=== PATIENT | female | born 1965 | race American Indian/Alaskan Native ===

== ENCOUNTER 2020-11-23 16:38 | Observation (INO) | payer OTHER ==
[2020-11-23 15:12] LABS: Hematocrit 42.6 % (30.3-42.9); Hemoglobin 13.5 gm/dl (10.1-14.3); Mean Corpuscular HGB Conc 32 % (30-34); Mean Corpuscular Volume 83 fl (79-97); Platelet Count 366 K/mm3 (140-440); Red Cell Distribution Width 16.2 % (13.2-15.2)
--- NOTE | 2020-11-23 15:20 | Cat Scan Report ---
CT head/brain wo con INDICATION / CLINICAL INFORMATION: 55 years Female; code stroke. TECHNIQUE: Routine CT head without contrast. All CT scans at this location are performed using CT dos e reduction for ALARA by means of automated exposure control. COMPARISON: None. FINDINGS: BRAIN / INTRACRANIAL CONTENTS: The motion significantly degrades the image quality. However, there is a right frontal and left frontotemporal craniotomy defects with underlying encephalomalacia. There i s also extensive cerebral white matter disease most consistent with microvascular angiopathy. The inf arct along the anterior left thalamus appears chronic. However, correlation would be needed regarding underlying acute ischemia given the extent of findings and patient's history of unspecified "code st roke". There is notable soft tissue attenuation projected along the sellar and suprasellar region as well as the medial left temporal lobe with effacement of the adjacent sulci. This finding would appear to re flect residual tumor given the postsurgical changes and correlation would be needed, particularly reg arding any previous outside exams. Is mild cerebral atrophy with prominence of the ventricular system . The motion and beam hardening degrade the image quality with streak artifact along the cerebral conve xities. However, there is otherwise no gross CT evidence of acute intracranial hemorrhage. ORBITS: No significant abnormality of visualized orbits. SINUSES / MASTOIDS: There are postsurgical changes compatible with transsphenoidal approach for pitui tary lesion. Otherwise, the paranasal sinuses are pneumatized. CRANIOCERVICAL JUNCTION: No significant abnormality. ADDITIONAL FINDINGS: None. IMPRESSION: 1. The study is limited by motion. However, there are extensive postsurgical changes with apparent re sidual lesion along the suprasellar and left cavernous sinus region as detailed above. 2. There is also extensive microvascular angiopathy as described without gross CT evidence of acute i ntracranial hemorrhage. The study was specified as code stroke and called to Dr. Heath in the ER at 2:12 PM Central standar d time. Signer Name: Omar Underwood MD Signed: 11/23/2020 3:16 PM Workstation Name: [id number]
[2020-11-23 15:25] LABS: INR 1.15 (0.87-1.13)
[2020-11-23 15:26] LABS: Thrombin Time 17.6 Sec. (15.1-19.6)
[2020-11-23 15:31] LABS: Albumin 4.1 g/dL (3.9-5); Bilirubin,Direct 0.3 mg/dL (0-0.2); Calcium 9.2 mg/dL (8.4-10.2)
--- NOTE | 2020-11-23 15:42 | Consultation ---
History of Present Illness - Reason for Consult Consult date: 11/23/20 - History of Present Illness [facility] Consult Note # Demographics Consult Type: Acute Stroke Level 1 (0-4.5 hrs) Patient Location: Emergency Room First Name: Nicholas Last Name: Amrik Date of : 1965 Age: 55 Gender: Female Time of Initial Page ( Time): 11/23/2020, 14:45 Time of Return Call ( Time): 11/23/2020, 14:46 # HPI History: 55yo woman who fell in the bathroom, and was not able to use her right arm (was not able to hold a water bottle). She also had right facial drooping. En route, EMS stated she has had resolution of symptoms. She still has mild right facial. # Scores Time of exam and NIHSS ( Time): 11/23/2020, 14:52 Level of Consciousness 1a: [0] = Alert; keenly responsive LOC Questions 1b: [0] = Answers both questions correctly LOC Commands 1c: [0] = Performs both tasks correctly Best Gaze 2: [0] = Normal Visual 3: [0] = No visual loss Facial Palsy 4: [1] = Minor paralysis Motor Arm Left 5a: [0] = No drift Motor Arm Right 5b: [0] = No drift Motor Leg Left 6a: [0] = No drift Motor Leg Right 6b: [0] = No drift Limb Ataxia 7: [0] = Absent Sensory 8: [0] = Normal Best Language 9: [0] = No aphasia Dysarthria 10: [0] = Normal Extinction and Inattention 11: [0] = No abnormality NIHSS Total: 1 # Exam SBP: 120 DBP: 76 # PMH-FH-SH Past Medical History: Diabetes, hypertension, brain surgery for brain tumor # Data Glucose: [address]: no bleed, old left encephalomalacia and left craniotomy # Assessment Impression: Altered Mental Status, Weakness, possible seizure vs stroke with improving symptoms. # Plan Thrombolytic/Intervention: NOT IV Thrombolytic or IA Intervention Thrombolytic Exclusion (< 3 hour window): non-disabling deficit Intraarterial Exclusion: non-disabling Target Blood Pressure: SBP < 220 Labs: ESR, lipid panel Imaging: (urgency: routine admission): CT Angiogram Head and CT Angiogram Neck, MRI Brain with AND without contrast Diagnostic Test: echo without bubble study, EEG Therapy/Evaluation: NPO until swallow evaluation, PT/OT evaluation, speech/swallow consultation Medication: aspirin 81 mg daily DVT Prophylaxis: SCD, chemical DVT prophylaxis Other: permissive hypertension, telemetry monitoring, I have discussed my r ecommendations with the referring provider Disposition: admit Exam - Constitutional Vitals: Temp Pulse Resp BP Pulse Ox 98.5 F 95 H 27 H 107/67 95 11/23/20 15:08 11/23/20 15:08 11/23/20 15:08 11/23/20 15:08 11/23/20 15:08 Results - Labs CBC & Chem 7: 11/23/20 15:00 11/23/20 15:00 Labs: Abnormal lab results 11/23/20 11/23/20 Range/Units 15:00 15:00 WBC 11.1 H (4.5-11.0) K/mm3 RBC 5.10 H (3.65-5.03) M/mm3 MCH 26 L (28-32) pg RDW 16.2 H (13.2-15.2) % INR 1.15 H (0.87-1.13)
[2020-11-23 16:01] LABS: Creatine Kinase MB < 1.0 ng/mL (0.0-4.0)
--- NOTE | 2020-11-23 16:02 | Emergency Department Report ---
ED Neuro Deficit HPI - General Chief Complaint: Weakness Stated Complaint: STROKE Source: EMS Mode of arrival: Stretcher Limitations: No Limitations - History of Present Illness Initial Comments: Patient is 55 years old female with history of multiple brain tumor surgery. Patient also history of hypertension. Patient brought to the emergency room for evaluation of possible initiated. Patient stated that she fell and noticed a weakness to the upper extremity. Patient stated that she is unable to hold a bottle of water in her hands. Patient also noticed that she had a right facial droop. EMS noticed that patient symptoms completely resolved by the time she got to the ER except for the minor facial droop. Patient denied any headache, neck pain, chest pain, shortness of breath, abdominal pain nausea or vomiting. Code stroke initiated and patient moved to CT for stat CT brain without contrast. Patient examined by Dr. Mariano, stroke teleneurology software security consultant. He stated that patient not a TPA candidate. Patient came he also does not show large vessels occlusion. -: Sudden Location: right face, right arm Presenting Symptoms: Present: Weak/Paralyzed One Side, Facial Droop/Numbness ED Review of Systems ROS: Stated complaint: STROKE Other details as noted in HPI Comment: All other systems reviewed and negative Constitutional: denies: chills, fever Respiratory: denies: cough, shortness of breath, SOB with exertion Cardiovascular: denies: chest pain, palpitations Gastrointestinal: denies: abdominal pain, nausea Neurological: weakness, numbness. denies: headache, paresthesias, confusion, abnormal gait ED Past Medical Hx - Social History Smoking Status: Never Smoker ED Neuro Physical Exam - General Limitations: No Limitations General appearance: alert, in no apparent distress Suspected Stroke: Yes - Head Head exam: Present: atraumatic, normocephalic, normal inspection - Eye Eye exam: Present: normal appearance, PERRL - ENT ENT exam: Present: normal exam, normal orophraynx, mucous membranes moist - Neck Neck exam: Present: normal inspection, full ROM. Absent: tenderness, meningismus - Respiratory Respiratory exam: Present: normal lung sounds bilaterally - Cardiovascular Cardiovascular Exam: Present: regular rate, normal rhythm, normal heart sounds - GI/Abdominal GI/Abdominal exam: Present: soft, normal bowel sounds. Absent: distended, tenderness, guarding, rebound, rigid, organomegaly, mass, bruit, pulsatile mass, hernia - Extremities Exam Extremities exam: Present: normal inspection, full ROM, normal capillary refill. Absent: tenderness - Back Exam Back exam: Present: normal inspection, full ROM. Absent: CVA tenderness (R), CVA tenderness (L) - Neurological Exam Neurological exam: Present: alert, oriented X3. Absent: CN II-XII intact - NIHSS Assessment Interval: Baseline 1a. Level of Consciousness: alert/keenly responsive 1b. LOC Questions: answers both correctly 1c. LOC Commands: performs tasks correctly 2. Best Gaze: normal 3. Visual: no visual loss 4. Facial Palsy: minor paralysis 5b. Motor Arm Right: no drift 5a. Motor Arm Left: no drift 6a. Motor Leg Left: no drift 6b. Motor Leg Right: no drift 7. Limb Ataxia: absent 8. Sensory: normal 9. Best Language: no aphasia 10. Dysarthria: normal 11. Extinction/Inattention: no abnormality Total Score: 1 Stroke Severity: Minor Stroke - Psychiatric Psychiatric exam: Present: normal mood - Skin Skin exam: Present: warm, intact, normal color ED Course Vital Signs 11/23/20 15:08 Temperature 98.5 F Pulse Rate 95 H Respiratory 27 H Rate Blood Pressure 107/67 O2 Sat by Pulse 95 Oximetry - Lab Data Result diagrams: 11/23/20 15:00 11/23/20 15:00 Lab Results 11/23/20 11/23/20 11/23/20 Range/Units 15:00 15:00 15:00 WBC 11.1 H (4.5-11.0) K/mm3 RBC 5.10 H (3.65-5.03) M/mm3 Hgb 13.5 (10.1-14.3) gm/dl Hct 42.6 (30.3-42.9) % MCV 83 (79-97) fl MCH 26 L (28-32) pg MCHC 32 (30-34) % RDW 16.2 H (13.2-15.2) % Plt Count 366 (140-440) K/mm3 Lymph # (Auto) Meter/Relay Craftsman PT 14.5 (12.2-14.9) Sec. INR 1.15 H (0.87-1.13) APTT 30.0 (24.2-36.6) Sec. Thrombin Time 17.6 (15.1-19.6) Sec. Sodium (137-145) mmol/L Potassium (3.6-5.0) mmol/L Chloride (98-107) mmol/L Carbon Dioxide (22-30) mmol/L Anion Gap mmol/L BUN (7-17) mg/dL Creatinine (0.6-1.2) mg/dL Estimated GFR ml/min BUN/Creatinine Ratio % Glucose (65-100) mg/dL Calcium (8.4-10.2) mg/dL Total Bilirubin (0.1-1.2) mg/dL Direct Bilirubin (0-0.2) mg/dL Indirect Bilirubin mg/dL AST (5-40) units/L ALT (7-56) units/L Alkaline Phosphatase (35-129) units/L Total Creatine Kinase 97 (30-135) units/L CK-MB (CK-2) < 1.0 (0.0-4.0) ng/mL CK-MB (CK-2) Rel Index 1.0 (0-4) Troponin T < 0.010 (0.00-0.029) ng/mL Total Protein (6.3-8.2) g/dL Albumin (3.9-5) g/dL Albumin/Globulin Ratio % 05/24/ Range/Units 15:00 WBC (4.5-11.0) K/mm3 RBC (3.65-5.03) M/mm3 Hgb (10.1-14.3) gm/dl Hct (30.3-42.9) % MCV (79-97) fl MCH (28-32) pg MCHC (30-34) % RDW (13.2-15.2) % Plt Count (140-440) K/mm3 Lymph # (Auto) PT (12.2-14.9) Sec. INR (0.87-1.13) APTT (24.2-36.6) Sec. Thrombin Time (15.1-19.6) Sec. Sodium 142 (137-145) mmol/L Potassium 4.0 (3.6-5.0) mmol/L Chloride 104.9 (98-107) mmol/L Carbon Dioxide 24 (22-30) mmol/L Anion Gap 17 mmol/L BUN 7 (7-17) mg/dL Creatinine 1.2 (0.6-1.2) mg/dL Estimated GFR 57 ml/min BUN/Creatinine Ratio 6 % Glucose 132 H (65-100) mg/dL Calcium 9.2 (8.4-10.2) mg/dL Total Bilirubin 1.10 (0.1-1.2) mg/dL Direct Bilirubin 0.3 H (0-0.2) mg/dL Indirect Bilirubin 0.8 mg/dL AST 20 (5-40) units/L ALT 13 (7-56) units/L Alkaline Phosphatase 55 (35-129) units/L Total Creatine Kinase (30-135) units/L CK-MB (CK-2) (0.0-4.0) ng/mL CK-MB (CK-2) Rel Index (0-4) Troponin T (0.00-0.029) ng/mL Total Protein 7.5 (6.3-8.2) g/dL Albumin 4.1 (3.9-5) g/dL Albumin/Globulin Ratio 1.2 % - EKG Data -: EKG Interpreted by Me EKG shows normal: sinus rhythm Rate: normal Interpretation: no acute changes - Radiology Data Radiology results: report reviewed - Medical Decision Making Patient is 55 years old female with history of multiple brain tumor surgery. Patient also history of hypertension. Patient brought to the emergency room for evaluation of possible initiated. Patient stated that she fell and noticed a weakness to the upper extremity. Patient stated that she is unable to hold a bottle of water in her hands. Patient also noticed that she had a right facial droop. EMS noticed that patient symptoms completely resolved by the time she got to the ER except for the minor facial droop. Patient denied any headache, neck pain, chest pain, shortness of breath, abdominal pain nausea or vomiting. Code stroke initiated and patient moved to CT for stat CT brain without contras t. Patient examined by Dr. Mariano, stroke teleneurology software security consultant. He stated that patient not a TPA candidate. Patient came he also does not show large vessels occlusion. I discussed the patient with Dr. Corona, he agreed to admit the patient to the medical service for further management. Critical Care Time: Yes Critical care time in (mins) excluding proc time.: 30 Critical care attestation.: If time is entered above; I have spent that time in minutes in the direct care of this critically ill patient, excluding procedure time. ED Disposition Clinical Impression: TIA (transient ischemic attack) Disposition: [id number] OP ADMIT IP TO THIS HOSP Is pt being admited?: Yes Condition: Stable
[2020-11-23 16:17] LABS: Total Cells Counted 100
[2020-11-23 16:18] LABS: Platelet Estimate Consistent w Auto; RBC Morphology Normal
[2020-11-24] MEDS ORDERED: ACETAMINOPHEN 325 MG TAB PO PRN (00:01)
[2020-11-24] MEDS ORDERED: MORPHINE 2 MG/1 ML INJ IV PRN (00:01)
[2020-11-24] MEDS ORDERED: oxyCODONE /ACETAMINOPHEN 5-325MG TAB PO PRN (00:01)
[2020-11-24] MEDS ORDERED: HYDROmorphone 1 MG/1 ML INJ IV PRN (00:01)
[2020-11-24] MEDS ORDERED: METOCLOPRAMIDE 10 MG/2 ML INJ IV PRN (00:01)
[2020-11-24] MEDS ORDERED: ONDANSETRON 4 MG/2 ML INJ IV PRN (00:01)
[2020-11-24] MEDS: SODIUM CHLORIDE 0.9% 1000 ML 1,000 ML IV SCH (02:58)
--- NOTE | 2020-11-24 06:44 | History and Physical Report ---
History of Present Illness Date of examination: 11/23/20 Date of admission: 11/23/20 18:53 Chief complaint: Right-sided weakness since a.m. History of present illness: 55-year-old female with a history of benign brain tumors and status post surgery brought to the emergency room for right-sided weakness and right facial droop. Patient was brought in by EMS. In the emergency room the facial droop on the right upper extremity weakness has resolved. Patient has difficulty walking but able to stand up and walk with the help. Code stroke was called. Patient was deemed to be not a TPA candidate. During my examination patient had normal strength in the right upper extremity and right facial droop is resolved. Was able to walk some instability.. Patient being admitted for TIA work-up and possible resolving stroke Review of Systems ROS: Constitutional no weight loss or weight gain no fever or chills HEENT no sore throat no post nasal drip no diplopia Neck no neck stiffness no lymph gland enlargement Chest and lungs no shortness of breath cough or wheezing CVS right upper extremity weakness and right facial droop GI no nausea no vomiting no diarrhea Genitourinary system no dysuria no flank pain Musculoskeletal system no muscle pains no joint pains [employer] no syncope no seizures Skin no rash no itching Psychiatric no depression no homicidal or suicidal tendencies Hematologic no lymphedema or bruising Endocrine no polydipsia no polyuria no cold intolerance no heat intolerance Past History Past Medical History: hypertension, other (Benign brain tumor) Past Surgical History: Other (Benign brain tumor removal) Social history: lives with family, full code Family history: hypertension Medications and Allergies Allergies Allergy/AdvReac Type Severity Reaction Status Date / Time No Known Allergies Allergy Verified 11/24/20 00:16 Active Meds: Active Medications Acetaminophen (Acetaminophen 325 Mg Tab) 650 mg PO Q4H PRN PRN Reason: Pain MILD(1-3)/Fever >100.5/RODRIGUEZ Hydromorphone HCl (Hydromorphone 1 Mg/1 Ml Inj) 0.5 mg IV Q3H PRN PRN Reason: Pain , Severe (7-10) Sodium Chloride (Nacl 0.9% 1000 Ml) 1,000 mls @ 100 mls/hr IV DIRECT DEMARIO Last Admin: 11/24/20 02:58 Dose: 100 mls/hr Documented by: Metoclopramide HCl (Metoclopramide 10 Mg/2 Ml Inj) 10 mg IV Q6H PRN PRN Reason: Nausea And Vomiting Morphine Sulfate (Morphine 2 Mg/1 Ml Inj) 2 mg IV Q4H PRN PRN Reason: Pain, Moderate (4-6) Ondansetron HCl (Ondansetron 4 Mg/2 Ml Inj) 4 mg IV Q3H PRN PRN Reason: Nausea And Vomiting Oxycodone/Acetaminophen (Oxycodone /Acetaminophen 5-325mg Tab) 1 tab PO Q6H PRN PRN Reason: Pain, Moderate (4-6) Sodium Chloride (Sodium Chloride 0.9% 10 Ml Flush Syringe) 10 ml IV BID DEMARIO Sodium Chloride (Sodium Chloride 0.9% 10 Ml Flush Syringe) 10 ml IV PRN PRN PRN Reason: LINE FLUSH Exam - Constitutional Vitals: Temp Pulse Resp BP Pulse Ox 99.0 F 82 16 110/80 94 11/24/20 03:23 11/24/20 03:23 11/24/20 03:23 11/24/20 03:23 11/24/20 03:23 General appearance: Present: no acute distress, well-nourished - EENT Eyes: Present: PERRL ENT: hearing intact, clear oral mucosa - Neck Neck: Present: supple, normal ROM - Respiratory Respiratory effort: normal Respiratory: bilateral: CTA - Cardiovascular Heart rate: 78 Rhythm: regular Heart Sounds: Present: S1 & S2. Absent: rub, click - Extremities Extremities: pulses symmetrical, No edema Peripheral Pulses: within normal limits - Abdominal General gastrointestinal: Present: soft, non-tender, non-distended, normal bowel sounds Female genitourinary: Present: normal - Integumentary Integumentary: Present: clear, warm, dry - Musculoskeletal Musculoskeletal: strength equal bilaterally, generalized weakness - Psychiatric Psychiatric: appropriate mood/affect, intact judgment & insight - Neurologic Neurologic: CNII-XII intact, moves all extremities, gait normal - Allied Health Allied health notes reviewed: nursing, case management HEART Score - HEART Score History: Slightly suspicious Risk factors: 1-2 risk factors Troponin: Troponin T < 0.010 ng/mL (0.00-0.029) 11/23/20 15:00 Troponin: < normal limit - Critical Actions Critical Actions: 0-3 pts:0.9-1.7%risk of adverse cardiac event.Candidate for discharge Results - Labs CBC & Chem 7: 11/23/20 15:00 11/23/20 15:00 Labs: Laboratory Last Values WBC 11.1 K/mm3 (4.5-11.0) H 11/23/20 15:00 RBC 5.10 M/mm3 (3.65-5.03) H 11/23/20 15:00 Hgb 13.5 gm/dl (10.1-14.3) 11/23/20 15:00 Hct 42.6 % (30.3-42.9) 11/23/20 15:00 MCV 83 fl (79-97) 11/23/20 15:00 MCH 26 pg (28-32) L 11/23/20 15:00 MCHC 32 % (30-34) 11/23/20 15:00 RDW 16.2 % (13.2-15.2) H 11/23/20 15:00 Plt Count 366 K/mm3 (140-440) 11/23/20 15:00 Lymph # (Auto) Parking Enforcement Manager 11/23/20 15:00 Add Manual Diff Complete 11/23/20 15:00 Total Counted 100 11/23/20 15:00 Seg Neuts % (Manual) 45.0 % (40.0-70.0) 11/23/20 15:00 Lymphocytes % (Manual) 49.0 % (13.4-35.0) H 11/23/20 15:00 Monocytes % (Manual) 6.0 % (0.0-7.3) 11/23/20 15:00 Nucleated RBC % Not Reportable 11/23/20 15:00 Seg Neutrophils # Man 5.0 K/mm3 (1.8-7.7) 11/23/20 15:00 Band Neutrophils # 0.0 K/mm3 11/23/20 15:00 Lymphocytes # (Manual) 5.4 K/mm3 (1.2-5.4) 11/23/20 15:00 Abs React Lymphs (Man) 0.0 K/mm3 11/23/20 15:00 Monocytes # (Manual) 0.7 K/mm3 (0.0-0.8) 11/23/20 15:00 Eosinophils # (Manual) 0.0 K/mm3 (0.0-0.4) 11/23/20 15:00 Basophils # (Manual) 0.0 K/mm3 (0.0-0.1) 11/23/20 15:00 Metamyelocytes # 0.0 K/mm3 11/23/20 15:00 Myelocytes # 0.0 K/mm3 11/23/20 15:00 Promyelocytes # 0.0 K/mm3 11/23/20 15:00 Blast Cells # 0.0 K/mm3 11/23/20 15:00 WBC Morphology Not Reportable 11/23/20 15:00 Hypersegmented Neuts Not Reportable 11/23/20 15:00 Hyposegmented Neuts Not Reportable 11/23/20 15:00 Hypogranular Neuts Not Reportable 11/23/20 15:00 Smudge Cells Not Reportable 11/23/20 15:00 Toxic Granulation Not Reportable 11/23/20 15:00 Toxic Vacuolation Not Reportable 11/23/20 15:00 Dohle Bodies Not Reportable 11/23/20 15:00 Pelger-Huet Anomaly Not Reportable 11/23/20 15:00 Ojsse Rods Not Reportable 11/23/20 15:00 Platelet Estimate Consistent w auto 11/23/20 15:00 Clumped Platelets Not Reportable 11/23/20 15:00 Plt Clumps, EDTA Not Reportable 11/23/20 15:00 Large Platelets Not Reportable 11/23/20 15:00 Giant Platelets Not Reportable 11/23/20 15:00 Platelet Satelliting Not Reportable 11/23/20 15:00 Plt Morphology Comment Not Reportable 11/23/20 15:00 RBC Morphology Normal 11/23/20 15:00 Dimorphic RBCs Not Reportable 11/23/20 15:00 Polychromasia Not Reportable 11/23/20 15:00 Hypochromasia Not Reportable 11/23/20 15:00 Poikilocytosis Not Reportable 11/23/20 15:00 Anisocytosis Not Reportable 11/23/20 15:00 Microcytosis Not Reportable 11/23/20 15:00 Macrocytosis Not Reportable 11/23/20 15:00 Spherocytes Not Reportable 11/23/20 15:00 Pappenheimer Bodies Not Reportable 11/23/20 15:00 Sickle Cells Not Reportable 11/23/20 15:00 Target Cells Not Reportable 11/23/20 15:00 Tear Drop Cells Not Reportable 11/23/20 15:00 Ovalocytes Not Reportable 11/23/20 15:00 Helmet Cells Not Reportable 11/23/20 15:00 [place]man Bodies Not Reportable 11/23/20 15:00 [place] Rings Not Reportable 11/23/20 15:00 [place] Cells Not Reportable 11/23/20 15:00 Bite Cells Not Reportable 11/23/20 15:00 Crenated Cell Not Reportable 11/23/20 15:00 Elliptocytes Not Reportable 11/23/20 15:00 Acanthocytes (Spur) Not Reportable 11/23/20 15:00 Rouleaux Not Reportable 11/23/20 15:00 Hemoglobin C Crystals Not Reportable 11/23/20 15:00 Schistocytes Not Reportable 11/23/20 15:00 Malaria parasites Not Reportable 11/23/20 15:00 Mickey Bodies Not Reportable 11/23/20 15:00 Hem Pathologist Commnt No 11/23/20 15:00 PT 14.5 Sec. (12.2-14.9) 11/23/20 15:00 INR 1.15 (0.87-1.13) H 11/23/20 15:00 APTT 30.0 Sec. (24.2-36.6) 11/23/20 15:00 Thrombin Time 17.6 Sec. (15.1-19.6) 11/23/20 15:00 Sodium 142 mmol/L (137-145) 11/23/20 15:00 Potassium 4.0 mmol/L (3.6-5.0) 11/23/20 15:00 Chloride 104.9 mmol/L (98-107) 11/23/20 15:00 Carbon Dioxide 24 mmol/L (22-30) 11/23/20 15:00 Anion Gap 17 mmol/L 11/23/20 15:00 BUN 7 mg/dL (7-17) 11/23/20 15:00 Creatinine 1.2 mg/dL (0.6-1.2) 11/23/20 15:00 Estimated GFR 57 ml/min 11/23/20 15:00 BUN/Creatinine Ratio 6 % 11/23/20 15:00 Glucose 132 mg/dL (65-100) H 11/23/20 15:00 Hemoglobin A1c 5.9 % (4-6) 11/23/20 15:00 Calcium 9.2 mg/dL (8.4-10.2) 11/23/20 15:00 Total Bilirubin 1.10 mg/dL (0.1-1.2) 11/23/20 15:00 Direct Bilirubin 0.3 mg/dL (0-0.2) H 11/23/20 15:00 Indirect Bilirubin 0.8 mg/dL 11/23/20 15:00 AST 20 units/L (5-40) 11/23/20 15:00 ALT 13 units/L (7-56) 11/23/20 15:00 Alkaline Phosphatase 55 units/L (35-129) 11/23/20 15:00 Total Creatine Kinase 97 units/L (30-135) 11/23/20 15:00 CK-MB (CK-2) < 1.0 ng/mL (0.0-4.0) 11/23/20 15:00 CK-MB (CK-2) Rel Index 1.0 (0-4) 11/23/20 15:00 Troponin T < 0.010 ng/mL (0.00-0.029) 11/23/20 15:00 Total Protein 7.5 g/dL (6.3-8.2) 11/23/20 15:00 Albumin 4.1 g/dL (3.9-5) 11/23/20 15:00 Albumin/Globulin Ratio 1.2 % 11/23/20 15:00 Short CBC 11/23/20 Range/Units 15:00 WBC 11.1 H (4.5-11.0) K/mm3 Hgb 13.5 (10.1-14.3) gm/dl Hct 42.6 (30.3-42.9) % Plt Count 366 (140-440) K/mm3 BMP 11/23/20 15:00 Sodium 142 Potassium 4.0 Chloride 104.9 Carbon Dioxide 24 BUN 7 Creatinine 1.2 Glucose 132 H Calcium 9.2 Cardiac Enzymes 11/23/20 Range/Units 15:00 Total Creatine Kinase 97 (30-135) units/L CK-MB (CK-2) < 1.0 (0.0-4.0) ng/mL Troponin T < 0.010 (0.00-0.029) ng/mL Liver Function 11/23/20 Range/Units 15:00 Total Bilirubin 1.10 (0.1-1.2) mg/dL Direct Bilirubin 0.3 H (0-0.2) mg/dL AST 20 (5-40) units/L ALT 13 (7-56) units/L Alkaline Phosphatase 55 (35-129) units/L Albumin 4.1 (3.9-5) g/dL - Imaging and Cardiology EKG: report reviewed (Sinus rhythm no acute ST-T wave changes) Imaging and Cardiology: Head CT There is a right frontal and left frontotemporal craniotomy defects with underlying encephalomalacia. There is also extensive cerebral white matter disease most consistent with microvascular angiopathy. Extensive postsurgical changes with apparent vesicular lesion along the suprasellar and left cavernous sinus region. There is also extensive microvascular angiopathy as described without gross CT evidence of acute intracranial hemorrhage. Ponce/IV: Voiding Method External Female Catheter Assessment and Plan Advance Directives: Yes (Full code) VTE prophylaxis?: Chemical Plan of care discussed with patient/family: Yes - Patient Problems (1) TIA (transient ischemic attack) Current Visit: Yes Status: Acute Plan to address problem: Patient had right upper extremity weakness and right facial droop at the time of admission to the emergency room which is resolved over the next 3 to 4 hours. During my examination patient has some gait instability. Patient being admitted for TIA work-up with MRI carotid duplex scan and echocardiogram. (2) Hypertension Current Visit: Yes Status: Chronic Qualifiers: Hypertension type: essential hypertension Qualified Code(s): I10 - Essential (primary) hypertension Plan to address problem: Continue antihypertensives and adjust medicines as necessary. (3) Obesity (BMI 30.0-34.9) Current Visit: Yes Status: Chronic Plan to address problem: Patient counseled about obesity and possible follow-up with bariatric surgery (4) DVT prophylaxis Current Visit: Yes Status: Acute Plan to address problem: On heparin and GI prophylaxis
--- NOTE | 2020-11-24 08:43 | Consultation ---
History of Present Illness Consult date: 11/24/20 Reason for Consult: Right side weakness ,Hx of benign tumor removal brain History of present illness: Right-sided weakness since a.m. History of present illness: 55-year-old female with a history of benign brain tumors and status post surgery brought to the emergency room for right-sided weakness and right facial droop. Patient was brought in by EMS. In the emergency room the facial droop on the right upper extremity weakness has resolved. Patient has difficulty walking but able to stand up and walk with the help. Code stroke was called. Patient was deemed to be not a TPA candidate. 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 Skin no rash no itching Psychiatric no depression no homicidal or suicidal tendencies Hematologic no lymphedema or bruising Endocrine no polydipsia no polyuria no cold intolerance no heat intolerance Past History Past Medical History: hypertension, other (Benign brain tumor) Past Surgical History: Other (Benign brain tumor removal) Social history: lives with family, full code Family history: hypertension Medications and Allergies Allergies Allergy/AdvReac Type Severity Reaction Status Date / Time No Known Allergies Allergy Verified 11/24/20 00:16 Active Meds: Active Medications Acetaminophen (Acetaminophen 325 Mg Tab) 650 mg PO Q4H PRN PRN Reason: Pain MILD(1-3)/Fever >100.5/RODRIGUEZ Hydromorphone HCl (Hydromorphone 1 Mg/1 Ml Inj) 0.5 mg IV Q3H PRN PRN Reason: Pain , Severe (7-10) Sodium Chloride (Nacl 0.9% 1000 Ml) 1,000 mls @ 100 mls/hr IV DIRECT DEMARIO Last Admin: 11/24/20 02:58 Dose: 100 mls/hr Documented by: Metoclopramide HCl (Metoclopramide 10 Mg/2 Ml Inj) 10 mg IV Q6H PRN PRN Reason: Nausea And Vomiting Morphine Sulfate (Morphine 2 Mg/1 Ml Inj) 2 mg IV Q4H PRN PRN Reason: Pain, Moderate (4-6) Ondansetron HCl (Ondansetron 4 Mg/2 Ml Inj) 4 mg IV Q3H PRN PRN Reason: Nausea And Vomiting Oxycodone/Acetaminophen (Oxycodone /Acetaminophen 5-325mg Tab) 1 tab PO Q6H PRN PRN Reason: Pain, Moderate (4-6) Sodium Chloride (Sodium Chloride 0.9% 10 Ml Flush Syringe) 10 ml IV BID DEMARIO Sodium Chloride (Sodium Chloride 0.9% 10 Ml Flush Syringe) 10 ml IV PRN PRN PRN Reason: LINE FLUSH Past History Past Medical History: hypertension, other (Benign brain tumor) Past Surgical History: Other (Benign brain tumor removal) Social history: lives with family, full code Family history: hypertension Medications and Allergies Allergies Allergy/AdvReac Type Severity Reaction Status Date / Time No Known Allergies Allergy Verified 11/24/20 00:16 Active Meds: Active Medications Acetaminophen (Acetaminophen 325 Mg Tab) 650 mg PO Q4H PRN PRN Reason: Pain MILD(1-3)/Fever >100.5/RODRIGUEZ Hydromorphone HCl (Hydromorphone 1 Mg/1 Ml Inj) 0.5 mg IV Q3H PRN PRN Reason: Pain , Severe (7-10) Sodium Chloride (Nacl 0.9% 1000 Ml) 1,000 mls @ 100 mls/hr IV DIRECT DEMARIO Last Admin: 11/24/20 02:58 Dose: 100 mls/hr Documented by: Metoclopramide HCl (Metoclopramide 10 Mg/2 Ml Inj) 10 mg IV Q6H PRN PRN Reason: Nausea And Vomiting Morphine Sulfate (Morphine 2 Mg/1 Ml Inj) 2 mg IV Q4H PRN PRN Reason: Pain, Moderate (4-6) Ondansetron HCl (Ondansetron 4 Mg/2 Ml Inj) 4 mg IV Q3H PRN PRN Reason: Nausea And Vomiting Oxycodone/Acetaminophen (Oxycodone /Acetaminophen 5-325mg Tab) 1 tab PO Q6H PRN PRN Reason: Pain, Moderate (4-6) Sodium Chloride (Sodium Chloride 0.9% 10 Ml Flush Syringe) 10 ml IV BID DEMARIO Sodium Chloride (Sodium Chloride 0.9% 10 Ml Flush Syringe) 10 ml IV PRN PRN PRN Reason: LINE FLUSH Physical Examination - Vital Signs Vital Signs: Vital Signs Temp Pulse Resp BP Pulse Ox 98.5 F 95 H 27 H 107/67 95 11/23/20 15:08 11/23/20 15:08 11/23/20 15:08 11/23/20 15:08 11/23/20 15:08 - Constitutional General appearance: other (alert youning , disorieted sluggish to respond.) - EENT EENT: Present: PERRL, mucous membranes moist - Respiratory Respiratory: Present: lungs clear, rhonchi - Cardiovascular Cardiovascular: Present: normal S1, normal S2 Extremities: Present: no peripheral edema bilatateraly - Gastrointestinal Gastrointestinal: Present: normoactive bowel sounds - Integumentary Integumentary: Present: normal - Neurologic Cranial nerve examination: other (she is with right facial droop and left eye lid droop , no diplopia ) Speech examination: intact Sensorimotor examination: intact Detailed motor examination: other (she is with slight right side weakness upper and lower 4-/5 ) Results - Laboratory Findings CBC and BMP: 11/23/20 15:00 11/23/20 15:00 Abnormal Lab Findings: Abnormal Labs 11/23/20 11/23/20 11/23/20 15:00 15:00 15:00 WBC 11.1 H RBC 5.10 H MCH 26 L RDW 16.2 H Lymphocytes % (Manual) 49.0 H INR 1.15 H Glucose 132 H Direct Bilirubin 0.3 H Assessment and Plan Assessment and Plan - Patient Problems # TIA (transient ischemic attack)Vs CVA she is still with right upper and lower weakness and left eye droop Patient being admitted for work-up with MRI carotid duplex scan and echocardiogram. -ASA 325 mg daily - neuro check -lipid profil -lipitor 40 mg daily -Pt/OT - speech evaluation # Confusion - she is disoriented to date knows her age and date -she is sluggish to respond and yawn all the time - she is on multiple pain medications # Hx of brain tumor removal - # Hypertension Continue antihypertensives and adjust medicines as necessary.after 24 hours # Obesity (BMI 30.0-34.9) Patient counseled about obesity and possible follow-up with bariatric surgery # DVT prophylaxis On heparin and GI prophylaxis will follow
--- NOTE | 2020-11-24 09:46 | Progress Note ---
Assessment and Plan Assessment and plan: (1) TIA (transient ischemic attack) Current Visit: Yes Status: Acute Plan to address problem: Continue aspirin Statins Neurology evaluation MRI brain ordered Echocardiogram and ultrasound carotid Doppler Physical therapy evaluation (2) Hypertension Current Visit: Yes Status: Chronic Qualifiers: Hypertension type: essential hypertension Qualified Code(s): I10 - Essential (primary) hypertension Plan to address problem: Continue antihypertensives and adjust medicines as necessary. (3) Obesity (BMI 30.0-34.9) Current Visit: Yes Status: Chronic Plan to address problem: Patient counseled about obesity and possible follow-up with bariatric surgery (4) DVT prophylaxis Current Visit: Yes Status: Acute Plan to address problem: On heparin and GI prophylaxis History Interval history: 11/24. On aspirin and statins. Plan to get an MRI of her brain today. Echocardiogram and ultrasound carotid Doppler pending. Neurology has been consulted Hospitalist Physical - Physical exam Narrative exam: VITAL SIGNS: Reviewed. GENERAL: Awake HEAD: No signs of head trauma. EYES: Pupils are equal. Extraocular motions intact. MOUTH: Oropharynx is normal. NECK: No adenopathy, no JVD. CHEST: Chest with diminished breath sounds bilaterally. No wheezes, rales, or rhonchi. CARDIAC: normal S1 and S2, without murmurs, gallops, or rubs. ABDOMEN: Soft, non tender and non distended. No rebound or guarding, and no masses palpated. Bowel Sounds normal. MUSCULOSKELETAL: No edema NEUROLOGIC EXAM: Alert and oriented x3. SKIN: No obvious lesions - Constitutional Vitals: Temp Pulse Resp BP Pulse Ox 98.4 F 85 18 128/80 95 11/24/20 08:10 11/24/20 08:10 11/24/20 08:10 11/24/20 08:10 11/24/20 08:10 HEART Score - HEART Score Risk factors: 1-2 risk factors Troponin: Troponin T < 0.010 ng/mL (0.00-0.029) 11/23/20 15:00 Troponin: < normal limit - Critical Actions Critical Actions: 0-3 pts:0.9-1.7%risk of adverse cardiac event.Candidate for discharge Results - Labs CBC & Chem 7: 11/23/20 15:00 11/23/20 15:00 Labs: Laboratory Last Values WBC 11.1 K/mm3 (4.5-11.0) H 05/24/21 15:00 RBC 5.10 M/mm3 (3.65-5.03) H 11/23/20 15:00 Hgb 13.5 gm/dl (10.1-14.3) 11/23/20 15:00 Hct 42.6 % (30.3-42.9) 11/23/20 15:00 MCV 83 fl (79-97) 11/23/20 15:00 MCH 26 pg (28-32) L 11/23/20 15:00 MCHC 32 % (30-34) 11/23/20 15:00 RDW 16.2 % (13.2-15.2) H 11/23/20 15:00 Plt Count 366 K/mm3 (140-440) 11/23/20 15:00 Lymph # (Auto) Regulatory Internship 11/23/20 15:00 Add Manual Diff Complete 11/23/20 15:00 Total Counted 100 11/23/20 15:00 Seg Neuts % (Manual) 45.0 % (40.0-70.0) 11/23/20 15:00 Lymphocytes % (Manual) 49.0 % (13.4-35.0) H 11/23/20 15:00 Monocytes % (Manual) 6.0 % (0.0-7.3) 11/23/20 15:00 Nucleated RBC % Not Reportable 11/23/20 15:00 Seg Neutrophils # Man 5.0 K/mm3 (1.8-7.7) 11/23/20 15:00 Band Neutrophils # 0.0 K/mm3 11/23/20 15:00 Lymphocytes # (Manual) 5.4 K/mm3 (1.2-5.4) 11/23/20 15:00 Abs React Lymphs (Man) 0.0 K/mm3 11/23/20 15:00 Monocytes # (Manual) 0.7 K/mm3 (0.0-0.8) 11/23/20 15:00 Eosinophils # (Manual) 0.0 K/mm3 (0.0-0.4) 11/23/20 15:00 Basophils # (Manual) 0.0 K/mm3 (0.0-0.1) 11/23/20 15:00 Metamyelocytes # 0.0 K/mm3 11/23/20 15:00 Myelocytes # 0.0 K/mm3 11/23/20 15:00 Promyelocytes # 0.0 K/mm3 11/23/20 15:00 Blast Cells # 0.0 K/mm3 11/23/20 15:00 WBC Morphology Not Reportable 11/23/20 15:00 Hypersegmented Neuts Not Reportable 11/23/20 15:00 Hyposegmented Neuts Not Reportable 11/23/20 15:00 Hypogranular Neuts Not Reportable 11/23/20 15:00 Smudge Cells Not Reportable 11/23/20 15:00 Toxic Granulation Not Reportable 11/23/20 15:00 Toxic Vacuolation Not Reportable 11/23/20 15:00 Dohle Bodies Not Reportable 11/23/20 15:00 Pelger-Huet Anomaly Not Reportable 11/23/20 15:00 Josse Rods Not Reportable 11/23/20 15:00 Platelet Estimate Consistent w auto 11/23/20 15:00 Clumped Platelets Not Reportable 11/23/20 15:00 Plt Clumps, EDTA Not Reportable 11/23/20 15:00 Large Platelets Not Reportable 11/23/20 15:00 Giant Platelets Not Reportable 11/23/20 15:00 Platelet Satelliting Not Reportable 11/23/20 15:00 Plt Morphology Comment Not Reportable 11/23/20 15:00 RBC Morphology Normal 11/23/20 15:00 Dimorphic RBCs Not Reportable 11/23/20 15:00 Polychromasia Not Reportable 11/23/20 15:00 Hypochromasia Not Reportable 11/23/20 15:00 Poikilocytosis Not Reportable 11/23/20 15:00 Anisocytosis Not Reportable 11/23/20 15:00 Microcytosis Not Reportable 11/23/20 15:00 Macrocytosis Not Reportable 11/23/20 15:00 Spherocytes Not Reportable 11/23/20 15:00 Pappenheimer Bodies Not Reportable 11/23/20 15:00 Sickle Cells Not Reportable 11/23/20 15:00 Target Cells Not Reportable 11/23/20 15:00 Tear Drop Cells Not Reportable 11/23/20 15:00 Ovalocytes Not Reportable 11/23/20 15:00 Helmet Cells Not Reportable 11/23/20 15:00 [place] Bodies Not Reportable 11/23/20 15:00 [place] Rings Not Reportable 11/23/20 15:00 [place] Cells Not Reportable 11/23/20 15:00 Bite Cells Not Reportable 11/23/20 15:00 Crenated Cell Not Reportable 11/23/20 15:00 Elliptocytes Not Reportable 11/23/20 15:00 Acanthocytes (Spur) Not Reportable 11/23/20 15:00 Rouleaux Not Reportable 11/23/20 15:00 Hemoglobin C Crystals Not Reportable 11/23/20 15:00 Schistocytes Not Reportable 11/23/20 15:00 Malaria parasites Not Reportable 11/23/20 15:00 Mickey Bodies Not Reportable 11/23/20 15:00 Hem Pathologist Commnt No 11/23/20 15:00 PT 14.5 Sec. (12.2-14.9) 11/23/20 15:00 INR 1.15 (0.87-1.13) H 11/23/20 15:00 APTT 30.0 Sec. (24.2-36.6) 11/23/20 15:00 Thrombin Time 17.6 Sec. (15.1-19.6) 11/23/20 15:00 Sodium 142 mmol/L (137-145) 11/23/20 15:00 Potassium 4.0 mmol/L (3.6-5.0) 11/23/20 15:00 Chloride 104.9 mmol/L (98-107) 11/23/20 15:00 Carbon Dioxide 24 mmol/L (22-30) 11/23/20 15:00 Anion Gap 17 mmol/L 11/23/20 15:00 BUN 7 mg/dL (7-17) 11/23/20 15:00 Creatinine 1.2 mg/dL (0.6-1.2) 11/23/20 15:00 Estimated GFR 57 ml/min 11/23/20 15:00 BUN/Creatinine Ratio 6 % 11/23/20 15:00 Glucose 132 mg/dL (65-100) H 11/23/20 15:00 Hemoglobin A1c 5.9 % (4-6) 11/23/20 15:00 Calcium 9.2 mg/dL (8.4-10.2) 11/23/20 15:00 Total Bilirubin 1.10 mg/dL (0.1-1.2) 11/23/20 15:00 Direct Bilirubin 0.3 mg/dL (0-0.2) H 11/23/20 15:00 Indirect Bilirubin 0.8 mg/dL 11/23/20 15:00 AST 20 units/L (5-40) 11/23/20 15:00 ALT 13 units/L (7-56) 11/23/20 15:00 Alkaline Phosphatase 55 units/L (35-129) 11/23/20 15:00 Total Creatine Kinase 97 units/L (30-135) 11/23/20 15:00 CK-MB (CK-2) < 1.0 ng/mL (0.0-4.0) 11/23/20 15:00 CK-MB (CK-2) Rel Index 1.0 (0-4) 11/23/20 15:00 Troponin T < 0.010 ng/mL (0.00-0.029) 11/23/20 15:00 Total Protein 7.5 g/dL (6.3-8.2) 11/23/20 15:00 Albumin 4.1 g/dL (3.9-5) 11/23/20 15:00 Albumin/Globulin Ratio 1.2 % 11/23/20 15:00 [place]/IV: Voiding Method External Female Catheter Active Medications - Current Medications Current Medications: Generic Name Dose Route Start Last Admin Trade Name Freq PRN Reason Stop Dose Admin Acetaminophen 650 mg 11/24/20 00:01 Acetaminophen 325 Mg Tab PO Q4H PRN Pain MILD(1-3)/Fever >100.5/RODRIGUEZ Hydromorphone HCl 0.5 mg 11/24/20 00:01 Hydromorphone 1 Mg/1 Ml Inj IV Q3H PRN Pain , Severe (7-10) Sodium Chloride 1,000 mls @ 100 mls/hr 11/24/20 00:15 11/24/20 02:58 Nacl 0.9% 1000 Ml IV 100 mls/hr DIRECT DEMARIO Administration Metoclopramide HCl 10 mg 11/24/20 00:01 Metoclopramide 10 Mg/2 Ml Inj IV Q6H PRN Nausea And Vomiting Morphine Sulfate 2 mg 11/24/20 00:01 Morphine 2 Mg/1 Ml Inj IV Q4H PRN Pain, Moderate (4-6) Ondansetron HCl 4 mg 11/24/20 00:01 Ondansetron 4 Mg/2 Ml Inj IV Q3H PRN Nausea And Vomiting Oxycodone/Acetaminophen 1 tab 11/24/20 00:01 Oxycodone /Acetaminophen 5-325mg Tab PO Q6H PRN Pain, Moderate (4-6) Sodium Chloride 10 ml 11/24/20 10:00 Sodium Chloride 0.9% 10 Ml Flush Syringe IV BID DEMARIO Sodium Chloride 10 ml 11/24/20 00:01 Sodium Chloride 0.9% 10 Ml Flush Syringe IV PRN PRN LINE FLUSH
--- NOTE | 2020-11-24 10:40 | Electrocardiograph Report ---
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
--- NOTE | 2020-11-24 13:25 | Vascular Lab Report ---
DUPLEX DOPPLER ULTRASOUND CAROTID, BILATERAL INDICATION / CLINICAL INFORMATION: stroke. COMPARISON: None available. FINDINGS: RIGHT CAROTID: No significant abnormality. - PLAQUE ESTIMATE (%): < 50% - CCA velocity: 75 cm/sec. - ICA peak systolic velocity: 70 cm/sec. - ICA/CCA PSV Ratio: 0.9 Right Vertebral Artery: Antegrade flow. LEFT CAROTID: No significant abnormality. - PLAQUE ESTIMATE (%): < 50% - CCA velocity: 59 cm/sec. - ICA peak systolic velocity: 64 cm/sec. - ICA/CCA PSV Ratio: 1.1 Left Vertebral Artery: Antegrade flow. IMPRESSION: 1. Right Internal Carotid Artery: Less than 50% diameter stenosis. 2. Left Internal Carotid Artery: Less than 50% diameter stenosis. Velocity criteria are extrapolated from diameter data as defined by the Society of Radiologists in Ul trasound Consensus Conference, Radiology 2003; 229;340-346. NO STENOSIS (NORMAL) - Plaque = none; ICA PSV < 125 cm/sec; ICA/CCA PSV Ratio < 2.0 <50% STENOSIS - Plaque < 50%; ICA PSV < 125 cm/sec; ICA/CCA PSV Ratio < 2.0 50-69% STENOSIS - Plaque > 50%; ICA PSV = 125-230 cm/sec; ICA/CCA PSV Ratio = 2.0-4.0 >70% BUT <100% STENOSIS - Plaque > 50%; ICA PSV > 230 cm/sec; ICA/CCA PSV Ratio > 4.0 NEAR OCCLUSION - Plaque = visible lumen; ICA PSV = high/low/none; ICA/CCA PSV Ratio = variable TOTAL OCCLUSION - Plaque = no lumen; ICA PSV = none; ICA/CCA PSV Ratio = N/A Scribed by: Lilly Ventura RDMS, RVT Scribed: 11/24/2020 9:59 AM Signer Name: Sonny Whipple MD Signed: 11/24/2020 1:21 PM Workstation Name: [id number]
--- NOTE | 2020-11-24 13:32 | Magnetic Resonance Report ---
MRI BRAIN 11/24/2020 INDICATION / CLINICAL INFORMATION: stroke. No additional information TECHNIQUE: Multiplanar, multisequence MR images of the brain were obtained. COMPARISON: CT brain 11/23/2020 FINDINGS: BRAIN / INTRACRANIAL CONTENTS: Unenhanced MR images of the brain were obtained. There is no evidence of acute abnormality. Left frontal temporal craniotomy is noted, as seen on the earlier CT scan. Postoperative changes and T2-weighted signal changes present in the left anterior temporal lobe. There is also vasogenic edema which appears to be extending upward from the region of the suprasellar cistern and optic chiasm, and involving T2-weighted signal change in the region of the hypothalamus bilaterally, as well as in ant erior aspects of the internal capsule bilaterally, slightly more prominently on the left. This patter n may be associated with underlying neoplastic process, and information regarding the patient's surgi samson and clinical history will be essential for further evaluation of these complex findings. There is no evidence of diffusion signal abnormality to suggest acute ischemic injury. Ventriculomegaly is present, possibly due to underlying central atrophy or hydrocephalus. There is no evidence of hemorrhage. There are no abnormal extra-axial fluid collections. EXTRACRANIAL: Unremarkable CRANIOCERVICAL JUNCTION: No significant abnormality. VASCULAR FLOW-VOIDS: No significant abnormality. IMPRESSION: 1. No evidence of restricted diffusion. 2. Complex postoperative changes in left temporal lobe. 3. Complex pattern of vasogenic edema in the region of the hypothalamus and inferior internal capsule s bilaterally, more extensively on the left. Please correlate with clinical information and prior anish dies. Postcontrast imaging may be necessary for complete evaluation as well. Signer Name: Júnior Escudero MD Signed: 11/24/2020 1:27 PM Workstation Name: [id number]
[2020-11-24] MEDS: ASPIRIN EC 325 MG TAB PO SCH (13:33)
[2020-11-25] MEDS: SODIUM CHLORIDE 0.9% 1000 ML 1,000 ML IV SCH ×2 (01:58→14:24)
[2020-11-25 05:49] LABS: Basophils % (Auto) 0.5 % (0.0-1.8); Eosinophils # (Auto) 0.3 K/mm3 (0.0-0.4); Eosinophils % (Auto) 3.3 % (0.0-4.3); Hematocrit 38.8 % (30.3-42.9); Hemoglobin 12.6 gm/dl (10.1-14.3); Lymphocytes # (Auto) 2.9 K/mm3 (1.2-5.4); Lymphocytes % (Auto) 36.8 % (13.4-35.0); Mean Corpuscular HGB Conc 32 % (30-34); Mean Corpuscular Volume 83 fl (79-97); Monocytes # (Auto) 0.6 K/mm3 (0.0-0.8); Platelet Count 275 K/mm3 (140-440); Red Blood Count 4.66 M/mm3 (3.65-5.03); Red Cell Distribution Width 16.5 % (13.2-15.2)
[2020-11-25 06:21] LABS: Alanine Aminotransferase 12 units/L (7-56); Albumin 3.6 g/dL (3.9-5); BUN/Creatinine Ratio 7; Blood Urea Nitrogen 6 mg/dL (7-17); Calcium 8.5 mg/dL (8.4-10.2); HDL Cholesterol 28 mg/dL (40-59); Hemolysis Index 21; LDL Cholesterol,Direct 74 mg/dL (50-130)
[2020-11-25 08:38] VITALS: BP 119/81
--- NOTE | 2020-11-25 09:29 | Progress Note ---
Assessment and Plan Assessment and plan: (1) Strokelike symptoms Continue aspirin Statins Neurology following. MRI brain shows no acute infarct. She has vasogenic edema with some compression of the left internal capsule. Neurosurgery has been consulted. Started on steroids Of note, she had brain surgery in [place] recently. Echocardiogram and ultrasound carotid Doppler negative for significant stenosis. Physical therapy evaluation (2) Hypertension Current Visit: Yes Status: Chronic Qualifiers: Hypertension type: essential hypertension Qualified Code(s): I10 - Essential (primary) hypertension Plan to address problem: Continue antihypertensives and adjust medicines as necessary. (3) Obesity (BMI 30.0-34.9) Current Visit: Yes Status: Chronic Plan to address problem: Patient counseled about obesity and possible follow-up with bariatric surgery (4) DVT prophylaxis Current Visit: Yes Status: Acute Plan to address problem: On heparin and GI prophylaxis Called patients pharmacy and confirmed home medications Lisinopril 20 mg qd Levothyroxine 100mcg daily Atorvastatin 20 mg daily Hydrocortisone 20mg AM 10 mg 4PM Metformin 500 mg BID History Interval history: 11/24. On aspirin and statins. Plan to get an MRI of her brain today. Echocardiogram and ultrasound carotid Doppler pending. Neurology has been consulted 11/25. She remains on aspirin and statins. Still has RUE weakness. MRI brain shows vasogenic edema with slight compression of internal capsule. She has no acute infarct. She had brain surgery about 2 weeks ago for a mass. This was performed by Dr Dent in [place] per patient. Neurosurgery consulted Hospitalist Physical - Physical exam Narrative exam: VITAL SIGNS: Reviewed. GENERAL: Awake HEAD: No signs of head trauma. EYES: Pupils are equal. Extraocular motions intact. MOUTH: Oropharynx is normal. NECK: No adenopathy, no JVD. CHEST: Chest with diminished breath sounds bilaterally. No wheezes, rales, or rhonchi. CARDIAC: normal S1 and S2, without murmurs, gallops, or rubs. ABDOMEN: Soft, non tender and non distended. No rebound or guarding, and no masses palpated. Bowel Sounds normal. MUSCULOSKELETAL: No edema NEUROLOGIC EXAM: Alert and oriented x3. No aphasia. RUE 4/. SKIN: No obvious lesions - Constitutional Vitals: Temp Pulse Resp BP Pulse Ox 99.2 F 90 20 119/81 96 11/25/20 08:10 11/25/20 08:10 11/25/20 08:10 11/25/20 08:10 11/25/20 08:10 HEART Score - HEART Score Risk factors: 1-2 risk factors Troponin: Troponin T < 0.010 ng/mL (0.00-0.029) 11/23/20 15:00 Troponin: < normal limit - Critical Actions Critical Actions: 0-3 pts:0.9-1.7%risk of adverse cardiac event.Candidate for discharge Results - Labs CBC & Chem 7: 11/25/20 04:30 11/25/20 04:30 Labs: Laboratory Last Values WBC 7.8 K/mm3 (4.5-11.0) 11/25/20 04:30 RBC 4.66 M/mm3 (3.65-5.03) 11/25/20 04:30 Hgb 12.6 gm/dl (10.1-14.3) 11/25/20 04:30 Hct 38.8 % (30.3-42.9) 11/25/20 04:30 MCV 83 fl (79-97) 11/25/20 04:30 MCH 27 pg (28-32) L 11/25/20 04:30 MCHC 32 % (30-34) 11/25/20 04:30 RDW 16.5 % (13.2-15.2) H 11/25/20 04:30 Plt Count 275 K/mm3 (140-440) 11/25/20 04:30 Lymph % (Auto) 36.8 % (13.4-35.0) H 11/25/20 04:30 [place] % (Auto) 8.0 % (0.0-7.3) H 11/25/20 04:30 Eos % (Auto) 3.3 % (0.0-4.3) 11/25/20 04:30 Baso % (Auto) 0.5 % (0.0-1.8) 11/25/20 04:30 Lymph # (Auto) 2.9 K/mm3 (1.2-5.4) 11/25/20 04:30 [place] # (Auto) 0.6 K/mm3 (0.0-0.8) 11/25/20 04:30 Eos # (Auto) 0.3 K/mm3 (0.0-0.4) 11/25/20 04:30 Baso # (Auto) 0.0 K/mm3 (0.0-0.1) 11/25/20 04:30 Add Manual Diff Complete 11/23/20 15:00 Total Counted 100 11/23/20 15:00 Seg Neutrophils % 51.4 % (40.0-70.0) 11/25/20 04:30 Seg Neuts % (Manual) 45.0 % (40.0-70.0) 11/23/20 15:00 Lymphocytes % (Manual) 49.0 % (13.4-35.0) H 11/23/20 15:00 Monocytes % (Manual) 6.0 % (0.0-7.3) 11/23/20 15:00 Nucleated RBC % Not Reportable 11/23/20 15:00 Seg Neutrophils # 4.0 K/mm3 (1.8-7.7) 11/25/20 04:30 Seg Neutrophils # Man 5.0 K/mm3 (1.8-7.7) 11/23/20 15:00 Band Neutrophils # 0.0 K/mm3 11/23/20 15:00 Lymphocytes # (Manual) 5.4 K/mm3 (1.2-5.4) 11/23/20 15:00 Abs React Lymphs (Man) 0.0 K/mm3 11/23/20 15:00 Monocytes # (Manual) 0.7 K/mm3 (0.0-0.8) 11/23/20 15:00 Eosinophils # (Manual) 0.0 K/mm3 (0.0-0.4) 11/23/20 15:00 Basophils # (Manual) 0.0 K/mm3 (0.0-0.1) 11/23/20 15:00 Metamyelocytes # 0.0 K/mm3 11/23/20 15:00 Myelocytes # 0.0 K/mm3 11/23/20 15:00 Promyelocytes # 0.0 K/mm3 11/23/20 15:00 Blast Cells # 0.0 K/mm3 11/23/20 15:00 WBC Morphology Not Reportable 11/23/20 15:00 Hypersegmented Neuts Not Reportable 11/23/20 15:00 Hyposegmented Neuts Not Reportable 11/23/20 15:00 Hypogranular Neuts Not Reportable 11/23/20 15:00 Smudge Cells Not Reportable 11/23/20 15:00 Toxic Granulation Not Reportable 11/23/20 15:00 Toxic Vacuolation Not Reportable 11/23/20 15:00 Dohle Bodies Not Reportable 11/23/20 15:00 Pelger-Huet Anomaly Not Reportable 11/23/20 15:00 Josse Rods Not Reportable 11/23/20 15:00 Platelet Estimate Consistent w auto 11/23/20 15:00 Clumped Platelets Not Reportable 11/23/20 15:00 Plt Clumps, EDTA Not Reportable 11/23/20 15:00 Large Platelets Not Reportable 11/23/20 15:00 Giant Platelets Not Reportable 11/23/20 15:00 Platelet Satelliting Not Reportable 11/23/20 15:00 Plt Morphology Comment Not Reportable 11/23/20 15:00 RBC Morphology Normal 11/23/20 15:00 Dimorphic RBCs Not Reportable 11/23/20 15:00 Polychromasia Not Reportable 11/23/20 15:00 Hypochromasia Not Reportable 11/23/20 15:00 Poikilocytosis Not Reportable 11/23/20 15:00 Anisocytosis Not Reportable 11/23/20 15:00 Microcytosis Not Reportable 11/23/20 15:00 Macrocytosis Not Reportable 11/23/20 15:00 Spherocytes Not Reportable 11/23/20 15:00 Pappenheimer Bodies Not Reportable 11/23/20 15:00 Sickle Cells Not Reportable 11/23/20 15:00 Target Cells Not Reportable 11/23/20 15:00 Tear Drop Cells Not Reportable 11/23/20 15:00 Ovalocytes Not Reportable 11/23/20 15:00 Helmet Cells Not Reportable 11/23/20 15:00 [place]leston Bodies Not Reportable 11/23/20 15:00 Maize Rings Not Reportable 11/23/20 15:00 [place] Cells Not Reportable 11/23/20 15:00 Bite Cells Not Reportable 11/23/20 15:00 Crenated Cell Not Reportable 11/23/20 15:00 Elliptocytes Not Reportable 11/23/20 15:00 Acanthocytes (Spur) Not Reportable 11/23/20 15:00 Rouleaux Not Reportable 11/23/20 15:00 Hemoglobin C Crystals Not Reportable 11/23/20 15:00 Schistocytes Not Reportable 11/23/20 15:00 Malaria parasites Not Reportable 11/23/20 15:00 Mickey Bodies Not Reportable 11/23/20 15:00 Hem Pathologist Commnt No 11/23/20 15:00 PT 14.5 Sec. (12.2-14.9) 11/23/20 15:00 INR 1.15 (0.87-1.13) H 11/23/20 15:00 APTT 30.0 Sec. (24.2-36.6) 11/23/20 15:00 Thrombin Time 17.6 Sec. (15.1-19.6) 11/23/20 15:00 Sodium 144 mmol/L (137-145) 11/25/20 04:30 Potassium 3.8 mmol/L (3.6-5.0) 11/25/20 04:30 Chloride 104.4 mmol/L (98-107) 11/25/20 04:30 Carbon Dioxide 26 mmol/L (22-30) 11/25/20 04:30 Anion Gap 17 mmol/L 11/25/20 04:30 BUN 6 mg/dL (7-17) L 11/25/20 04:30 Creatinine 0.9 mg/dL (0.6-1.2) 11/25/20 04:30 Estimated GFR > 60 ml/min 11/25/20 04:30 BUN/Creatinine Ratio 7 % 11/25/20 04:30 Glucose 111 mg/dL (65-100) H 11/25/20 04:30 POC Glucose 151 mg/dL (70-105) H 11/24/20 17:13 Hemoglobin A1c 5.9 % (4-6) 11/23/20 15:00 Calcium 8.5 mg/dL (8.4-10.2) 11/25/20 04:30 Total Bilirubin 1.60 mg/dL (0.1-1.2) H 11/25/20 04:30 Direct Bilirubin 0.3 mg/dL (0-0.2) H 11/23/20 15:00 Indirect Bilirubin 0.8 mg/dL 11/23/20 15:00 AST 19 units/L (5-40) 11/25/20 04:30 ALT 12 units/L (7-56) 11/25/20 04:30 Alkaline Phosphatase 45 units/L (35-129) 11/25/20 04:30 Total Creatine Kinase 97 units/L (30-135) 11/23/20 15:00 CK-MB (CK-2) < 1.0 ng/mL (0.0-4.0) 11/23/20 15:00 CK-MB (CK-2) Rel Index 1.0 (0-4) 11/23/20 15:00 Troponin T < 0.010 ng/mL (0.00-0.029) 11/23/20 15:00 Total Protein 6.8 g/dL (6.3-8.2) 11/25/20 04:30 Albumin 3.6 g/dL (3.9-5) L 11/25/20 04:30 Albumin/Globulin Ratio 1.1 % 11/25/20 04:30 Triglycerides 174 mg/dL (2-149) H 11/25/20 04:30 Cholesterol 126 mg/dL (50-199) 11/25/20 04:30 LDL Cholesterol Direct 74 mg/dL (50-130) 11/25/20 04:30 HDL Cholesterol 28 mg/dL (40-59) L 11/25/20 04:30 Cholesterol/HDL Ratio 4.50 % 11/25/20 04:30 Ponce/IV: Voiding Method External Female Catheter Active Medications - Current Medications Current Medications: Generic Name Dose Route Start Last Admin Trade Name Freq PRN Reason Stop Dose Admin Acetaminophen 650 mg 11/24/20 00:01 Acetaminophen 325 Mg Tab PO Q4H PRN Pain MILD(1-3)/Fever >100.5/RODRIGUEZ Aspirin 325 mg 11/24/20 13:00 11/24/20 13:33 Aspirin Ec 325 Mg Tab PO 325 mg QDAY DEMARIO Administration Atorvastatin Calcium 80 mg 11/24/20 22:00 11/24/20 22:29 Atorvastatin 40 Mg Tab PO 80 mg QHS DEMARIO Administration Hydromorphone HCl 0.5 mg 11/24/20 00:01 Hydromorphone 1 Mg/1 Ml Inj IV Q3H PRN Pain , Severe (7-10) Sodium Chloride 1,000 mls @ 100 mls/hr 11/24/20 00:15 11/25/20 01:58 Nacl 0.9% 1000 Ml IV 100 mls/hr DIRECT DEMARIO Administration Metoclopramide HCl 10 mg 11/24/20 00:01 Metoclopramide 10 Mg/2 Ml Inj IV Q6H PRN Nausea And Vomiting Morphine Sulfate 2 mg 11/24/20 00:01 11/25/20 01:55 Morphine 2 Mg/1 Ml Inj IV 2 mg Q4H PRN Administration Pain, Moderate (4-6) Ondansetron HCl 4 mg 11/24/20 00:01 Ondansetron 4 Mg/2 Ml Inj IV Q3H PRN Nausea And Vomiting Oxycodone/Acetaminophen 1 tab 11/24/20 00:01 Oxycodone /Acetaminophen 5-325mg Tab PO Q6H PRN Pain, Moderate (4-6) Sodium Chloride 10 ml 11/24/20 10:00 11/24/20 22:29 Sodium Chloride 0.9% 10 Ml Flush Syringe IV 10 ml BID DEMARIO Administration Sodium Chloride 10 ml 11/24/20 00:01 Sodium Chloride 0.9% 10 Ml Flush Syringe IV PRN PRN LINE FLUSH
[2020-11-25] MEDS: ASPIRIN EC 325 MG TAB PO SCH (10:11)
--- NOTE | 2020-11-25 10:42 | Progress Note ---
Assessment and Plan Assessment and Plan - Patient Problems # TIA (transient ischemic attack)Vs CVA she is still with right upper and lower weakness and left eye droop improved today Patient being admitted for work-up with MRI carotid duplex scan and echocardiogram. 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 7- cut down pain medications !!! will follow Subjective Date of service: 11/25/20 Principal diagnosis: right side weakness Interval history: pt. is with right side weakness presented for evaluation according to her she had so far X3 brain surgery for removal of brain ? Meningioma done is [place] not recall the last surgery date she is with significant memory difficulty more recent According to her she was palced in the past on seizure medication but she is not taking ? steroid Objective - Vital Sign Vital Signs - 12hr 11/24/20 11/25/20 11/25/20 23:37 02:12 02:25 Temperature 98.0 F Pulse Rate 86 65 Respiratory 18 20 Rate Respiratory 20 Rate [Bilateral Lower Leg] Blood Pressure 101/77 O2 Sat by Pulse 96 Oximetry 11/25/20 11/25/20 11/25/20 03:54 04:21 08:10 Temperature 99.2 F 99.2 F Pulse Rate 76 90 Respiratory 18 20 Rate Respiratory Rate [Bilateral Lower Leg] Blood Pressure 108/83 119/81 O2 Sat by Pulse 80 L 94 96 Oximetry - General Apperance Constitutional: other (Alert with very short attention spam forget my question ??she is sleepy most of the time according to her she is on multiple pain medications after her surgery but she is not in pain ???) - EENT EENT: PERRL, mucous membranes moist - Respiratory Respiratory: chest non-tender, lungs clear, rhonchi - Cardiovascular Cardiovascular: regular rate, normal S1, normal S2 Extremities: no peripheral edema bilat - Gastrointestinal Gastrointestinal: normoactive bowel sounds - Integumentary Integumentary: normal - Neurologic Cranial nerve examination: PERRL, EOMI, other (slight right facial droop) Speech examination: intact Detailed motor examination: other - Laboratory Findings CBC and BMP: 11/25/20 04:30 11/25/20 04:30 Abnormal Lab Findings: Abnormal Labs 11/23/20 11/23/20 11/23/20 14:43 15:00 15:00 WBC 11.1 H RBC 5.10 H MCH 26 L RDW 16.2 H Lymph % (Auto) [place] % (Auto) Lymphocytes % (Manual) 49.0 H INR 1.15 H BUN Glucose POC Glucose 127 H Total Bilirubin Direct Bilirubin Albumin Triglycerides HDL Cholesterol 11/23/20 11/24/20 11/25/20 15:00 17:13 04:30 WBC RBC MCH 27 L RDW 16.5 H Lymph % (Auto) 36.8 H Stanley % (Auto) 8.0 H Lymphocytes % (Manual) INR BUN Glucose 132 H POC Glucose 151 H Total Bilirubin Direct Bilirubin 0.3 H Albumin Triglycerides HDL Cholesterol 11/25/20 04:30 WBC RBC MCH RDW Lymph % (Auto) [place] % (Auto) Lymphocytes % (Manual) INR BUN 6 L Glucose 111 H POC Glucose Total Bilirubin 1.60 H Direct Bilirubin Albumin 3.6 L Triglycerides 174 H HDL Cholesterol 28 L
[2020-11-25] MEDS ORDERED: LIDOCAINE VISCOUS 2% 15 ML ORAL LIQD ONE (13:00)
[2020-11-25] MEDS ORDERED: EPINEPHrine 1 MG/10 ML SYRINGE ONE ×2 (13:05→21:56)
[2020-11-25] MEDS ORDERED: LIDOCAINE PF 100 MG/5 ML (CARDIAC SYRINGE) IV ONE (13:05)
[2020-11-25] MEDS ORDERED: SODIUM BICARB 8.4% 50 MEQ/50 ML SYRINGE IV ONE ×2 (13:05→21:56)
[2020-11-25] MEDS ORDERED: METOPROLOL TARTRATE 25 MG TAB PO SCH (14:00)
[2020-11-25] MEDS ORDERED: DEXAMETHASONE 4 MG TAB PO SCH (14:00)
--- NOTE | 2020-11-25 14:54 | Electrocardiograph Report ---
[facility] Test Date: 2020-11-25 Test Time: 12:18:38 Pat Name: DEEPTHI HUDDLESTON Department: Room: A456 1 Gender: F Renewals Representative: VERONICA : 1965 Requested By: EDWIGE KENNEDY Order Number: [id number] Reading MD: Valeriy Santana Measurements Intervals Jacob Rate: 104 P: 46 SD: 141 QRS: 102 QRSD: 120 T: -7 QT: 350 QTc: 461 Interpretive Statements Sinus tachycardia Nonspecific intraventricular conduction delay Right bundle branch block Compared to ECG 11/23/2020 15:26:17 Intraventricular conduction delay now present Electronically Signed On 11-25-2020 14:53:51 EDT by Valeriy Santana
[2020-11-25] MEDS ORDERED: NORepinephrine/NS 4 MG-250 ML 4 MG/250 ML BAG IV ONE (18:00)
[2020-11-25] MEDS ORDERED: dilTIAZem/D5W 100 MG/100 ML BAG IV SCH (18:00)
--- NOTE | 2020-11-25 18:03 | Procedure Note ---
Date of procedure: 11/25/20 Pre-op diagnosis: Cardiac arrest Post-op diagnosis: same Procedure: Patient is a 55-year-old female that is admitted to our inpatient service. A CODE BLUE was called and I responded. The hospitalist is running the code and I intubated the patient. See procedure note below. Endotracheal Intubation: Indication: Cardiac arrest A time-out was completed verifying correct patient, procedure, site, positioning. The patient was placed in a flat position. The patient was easily ventilated using an ambu bag. The [employer] was used and inserted into the oropharynx at which time there was a Grade 1 view of the vocal cords. A 7.5-brit[place] virgin islander endotracheal tube was inserted and visualized going through the vocal cords. The stylette was removed. Colorimetric change was visualized on the capnography. Breath sounds were heard in both lung naylor equally. The endotracheal tube was placed at 24 cm, measured at the teeth. A chest x-ray was ordered to assess for pneumothorax and verify endotrachealtube placement. Estimated Blood Loss: none The patient tolerated the procedure well and there were no complications. Care will be transferred back to the primary team. Anesthesia: none Estimated blood loss: none Pathology: none Condition: critical Disposition: ICU
--- NOTE | 2020-11-25 18:26 | Magnetic Resonance Report ---
MRI BRAIN WITH CONTRAST INDICATION / CLINICAL INFORMATION: Suprasellar mass demonstrated on recent head CT and noncontrast MRI brain. Postcontrast imaging reque sted for further characterization of the lesion. TECHNIQUE: Multiplanar, multisequence MR images of the brain were obtained. Contrast: mL administered intravenously. COMPARISON: None available. FINDINGS: A large lobulated sellar and suprasellar mass lesion is demonstrated. This extends into the left cave rnous sinus and laterally in the left middle cranial fossa. The lesion measures about 2.6 cm in great est right left dimension by 2.2 cm 2.2 cm in greatest superior-inferior dimension. The lesion extends into the suprasellar cistern were processed the optic tracts, optic chiasm and optic nerves. There i s evidence of previous surgery for this tumor. Correlation with surgical pathology is advised. Based on imaging findings differential diagnosis includes pituitary macroadenoma, meningioma and craniophar yngioma. There is postoperative dural thickening with increased dural enhancement adjacent to the patient's cr aniotomy sites. No additional areas of abnormal contrast enhancement are identified. IMPRESSION: 1. Large lobulated tumor involving sella turcica, suprasellar cistern, left cavernous sinus and left middle cranial fossa. Signer Name: Bossman Alfaro MD Signed: 11/25/2020 6:22 PM Workstation Name: [id number]
[2020-11-25] MEDS ORDERED: METOPROLOL TARTRATE 5 MG/5 ML INJ IV ONE (18:27)
--- NOTE | 2020-11-25 18:36 | Consultation ---
History of Present Illness Consult date: 11/25/20 Reason for Consult: right sided weakness Chief complaint: right sided weakness History of present illness: 55 y/o Female presents to the Neurosurgery clinic for evaluation of acute onset right sided weakness a few days ago. She has a history of brain tumors per report and may have undergone a recent brain surgery at [place]. The patient is unable to provide historical information at this time. Presently, she denies h eadache, nausea, or vomiting. She also denies any persistent weakness in her arms or legs. Presently, she is eating lunch. Past History Past Medical History: hypertension, other (Benign brain tumor) Past Surgical History: Other (Benign brain tumor removal) Social history: lives with family, full code Family history: hypertension Medications and Allergies Allergies Allergy/AdvReac Type Severity Reaction Status Date / Time No Known Allergies Allergy Verified 11/24/20 00:16 Home Medications Medication Instructions Recorded Confirmed Last Taken Type Levothyroxine 100 mcg PO QDAY 11/25/20 11/25/20 Unknown History Lisinopril 20 mg PO QDAY 11/25/20 11/25/20 Unknown History Metformin HCl [metFORMIN] 1,000 mg PO QHS 11/25/20 11/25/20 Unknown History Active Meds: Active Medications Acetaminophen (Acetaminophen 325 Mg Tab) 650 mg PO Q4H PRN PRN Reason: Pain MILD(1-3)/Fever >100.5/RODRIGUEZ Aspirin (Aspirin Ec 325 Mg Tab) 325 mg PO QDAY [facility] Last Admin: 11/25/20 10:11 Dose: 325 mg Documented by: Atorvastatin Calcium (Atorvastatin 40 Mg Tab) 80 mg PO QHS [facility] Last Admin: 11/24/20 22:29 Dose: 80 mg Documented by: Dexamethasone (Dexamethasone 4 Mg Tab) 4 mg PO Q8HR [facility] Last Admin: 11/25/20 14:22 Dose: 4 mg Documented by: Hydromorphone HCl (Hydromorphone 1 Mg/1 Ml Inj) 0.5 mg IV Q3H PRN PRN Reason: Pain , Severe (7-10) Sodium Chloride (Nacl 0.9% 1000 Ml) 1,000 mls @ 100 mls/hr IV DIRECT [facility] Last Admin: 11/25/20 14:24 Dose: 100 mls/hr Documented by: Diltiazem HCl (Cardizem/D5w 100mg/100ml) 100 mg in 100 mls @ 5 mls/hr IV TITR [facility]; Protocol Levothyroxine Sodium (Levothyroxine 100 Mcg Tab) 100 mcg PO DAILY@0600 [facility] Metoclopramide HCl (Metoclopramide 10 Mg/2 Ml Inj) 10 mg IV Q6H PRN PRN Reason: Nausea And Vomiting Metoprolol Tartrate (Metoprolol Tartrate 25 Mg Tab) 25 mg PO BID [facility] Last Admin: 11/25/20 14:22 Dose: 25 mg Documented by: Morphine Sulfate (Morphine 2 Mg/1 Ml Inj) 2 mg IV Q4H PRN PRN Reason: Pain, Moderate (4-6) Last Admin: 11/25/20 01:55 Dose: 2 mg Documented by: Ondansetron HCl (Ondansetron 4 Mg/2 Ml Inj) 4 mg IV Q3H PRN PRN Reason: Nausea And Vomiting Oxycodone/Acetaminophen (Oxycodone /Acetaminophen 5-325mg Tab) 1 tab PO Q6H PRN PRN Reason: Pain, Moderate (4-6) Sodium Chloride (Sodium Chloride 0.9% 10 Ml Flush Syringe) 10 ml IV BID [facility] Last Admin: 11/25/20 10:11 Dose: 10 ml Documented by: Sodium Chloride (Sodium Chloride 0.9% 10 Ml Flush Syringe) 10 ml IV PRN PRN PRN Reason: LINE FLUSH Review of Systems All systems: negative (what is specified in HPI) Physical Examination - Vital Signs Vital Signs: Vital Signs Temp Pulse Resp BP Pulse Ox 98.5 F 95 H 27 H 107/67 95 11/23/20 15:08 11/23/20 15:08 11/23/20 15:08 11/23/20 15:08 11/23/20 15:08 - Physical Exam Narrative exam: seen and examined no acute distress NC/AT RRR breathing non-labored abdomen soft no cyanosis or clubbing A&Ox3 CNII-XII intact MAEW sensation intact no drift Results - Laboratory Findings CBC and BMP: 11/25/20 04:30 11/25/20 04:30 Abnormal Lab Findings: Abnormal Labs 11/23/20 11/23/20 11/23/20 14:43 15:00 15:00 WBC 11.1 H RBC 5.10 H MCH 26 L RDW 16.2 H Lymph % (Auto) [place] % (Auto) Lymphocytes % (Manual) 49.0 H INR 1.15 H BUN Glucose POC Glucose 127 H Total Bilirubin Direct Bilirubin Albumin Triglycerides HDL Cholesterol 11/23/20 11/24/20 11/25/20 15:00 17:13 04:30 WBC RBC MCH 27 L RDW 16.5 H Lymph % (Auto) 36.8 H [place] % (Auto) 8.0 H Lymphocytes % (Manual) INR BUN Glucose 132 H POC Glucose 151 H Total Bilirubin Direct Bilirubin 0.3 H Albumin Triglycerides HDL Cholesterol 11/25/20 04:30 WBC RBC MCH RDW Lymph % (Auto) [place] % (Auto) Lymphocytes % (Manual) INR BUN 6 L Glucose 111 H POC Glucose Total Bilirubin 1.60 H Direct Bilirubin Albumin 3.6 L Triglycerides 174 H HDL Cholesterol 28 L Assessment and Plan Nicholas Rowley is a 55 y/o Female s/p craniotomy for left temporal lesion. There are no acute findings on her MRI brain. Therefore, no indication for NSGY intervention at this time. She may follow up with her Neurosurgeon at [place] as scheduled.
--- NOTE | 2020-11-25 19:20 | Event Note ---
Date: 11/25/20 A CODE ROBER was called. I presented to the bedside and the patient was found in asystolic arrest. The patient was treated" with ACLS protocol with eventual return of perfusing cardiac rhythm. Patient was intubated and placed on ventilatory support. The patient was subsequently transported to ICU with initiation of critical care life support. The patient again coded in the ICU. The patient was treated" with ACLS protocol. After prolonged care the patient was found to have asystole on the quality assurance monitor body, patient pupils were fixed and dilated, respiratory exam revealed absent lung sounds, and neurologic exam was absent for neurologic activity. Patient pronounced at 1818 hrs. 90 minutes critical care time dedicated to patient care. Patient family arrived. Advanced care planning conducted. Patient family informed of patient care. Bereavement counseling offered. +30 minutes.
--- NOTE | 2020-11-25 19:21 | Death Note ---
Note Date of : 11/25/20 Time of : 18:18 Time Pronounced: 18:18 - Preliminary Cause of (problem) (1) Acute hypoxemic respiratory failure Preliminary cause of
[2020-11-26] MEDS ORDERED: LEVOTHYROXINE 100 MCG TAB PO SCH (06:00)
--- NOTE | 2020-11-26 10:06 | Electrocardiograph Report ---
[facility] Test Date: 2020-11-25 Test Time: 17:21:03 Pat Name: DEEPTHI HUDDLESTON Department: Room: A253 1 Gender: F Head Batcher: VERONICA : 1965 Requested By: EDWIGE KENNEDY Order Number: [id number] Reading MD: Valeriy Santana Measurements Intervals [place] Rate: 181 P: LA: QRS: 110 QRSD: 101 T: -40 QT: 299 QTc: 519 Interpretive Statements Atrial fibrillation with rapid V-rate Right axis deviation Repolarization abnormality, prob rate related Compared to ECG 11/25/2020 12:18:38 Atrial fibrillation is new Electronically Signed On 11-26-2020 10:05:53 EDT by Valeriy Santana
--- NOTE | 2020-11-26 13:39 | Death Summary ---
Summary - Providers Consults: 11/24/20 00:01 Consult to Physician [CONS] Routine Comment: Consulting Provider: RAMSES KIM Physician Instructions: Reason For Exam: tia 11/24/20 00:10 Occupational Therapy Evaluate and Treat [CONS] Routine Comment: Reason For Exam: Neuro deficits Physical Therapy Evaluation and Treat [CONS] Routine Comment: Reason For Exam: Neuro deficits 11/25/20 09:17 Consult to Physician [CONS] Routine Comment: Consulting Provider: RATNA RUFFIN II Physician Instructions: Reason For Exam: Vasogenic edema on MRI with motor deficit Attending: EDWIGE KENNEDY - summary Date of admission: 11/23/20 18:53 Date of : 11/25/20 Significant findings: 55-year-old female with a history of benign brain tumors and status post surgery brought to the emergency room for right-sided weakness and right facial droop. Patient was brought in by EMS. In the emergency room the facial droop on the right upper extremity weakness has resolved. Patient has difficulty walking but able to stand up and walk with the help. Code stroke was called. Patient was deemed to be not a TPA candidate. During my examination patient had normal strength in the right upper extremity and right facial droop is resolved. Was able to walk some instability.. Patient being admitted for TIA work-up and possible resolving stroke Hospital course 11/24. On aspirin and statins. Plan to get an MRI of her brain today. Echocardiogram and ultrasound carotid Doppler pending. Neurology has been consulted 11/25. She remains on aspirin and statins. Still has RUE weakness. MRI brain shows vasogenic edema with slight compression of internal capsule. She has no acute infarct. She had brain surgery about 2 weeks ago for a mass. This was performed by Dr Dent in [place] per patient. Neurosurgery consulted - advised that MRI changes are due to recent surgery and low dose steroids recommended for now. She had SVT which terminated spontaneously, she was started on metoprolol 25mg BID. Cardiology will be consulted. Around 5pm, A MAGUE RICHTER was called after a rapid response for respiratory failure. presented to the bedside and the patient was found in asystolic arrest. The patient was treated" with ACLS protocol with eventual return of perfusing cardiac rhythm. Patient was intubated and placed on ventilatory support. The patient was subsequently transported to ICU with initiation of critical care life support. The patient again coded in the ICU. The patient was treated" with ACLS protocol. After prolonged care the patient was found to have asystole on the cardiac specialist, patient pupils were fixed and dilated, respiratory exam revealed absent lung sounds, and neurologic exam was absent for neurologic activity. Patient pronounced at 1818 hrs. Patient family arrived. Advanced care planning conducted. Patient family informed of patient care. Bereavement counseling offered. +30 minutes.
== END 2020-11-25 18:18 ==
LOC: ED 16:38 → 4A 18:53 → CC1 11-25 17:57
PROVIDERS: ADMIT Internal Medicine; ATTEND Internal Medicine
DX: G45.9 Transient cerebral ischemic attack, unspecified (principal); I46.9 Cardiac arrest, cause unspecified; J96.01 Acute respiratory failure with hypoxia; I10 Essential (primary) hypertension; E66.9 Obesity, unspecified; Z86.011 Personal history of benign neoplasm of the brain; Z79.899 Other long term (current) drug therapy; Z68.36 Body mass index [BMI] 36.0-36.9, adult
CPT/HCPCS: 31500; 36415; 70450; 70551; 70552; 80048; 80053; 80061; 80076; 82550; 82553; 82962; 83036; 84484; 85007; 85025; 85610; 85670; 85730; 93005; 93306; 93880; 96361; 96374; 96375; 97162; 97166; 99291; A9270; A9575; G0378; J0171; J2001; J2270; J7030; J8540